=== PATIENT | female | born 1975 | race Caucasian/White ===

== ENCOUNTER 2017-05-15 08:45 | Day surgery (SDC) | payer OTHER ==
[~2017-05-15] VITALS: Ht 172.7 cm; Wt 79.4 kg
[~2017-05-15 08:45] MED LIST: AMBIEN5 MG PO; COUGH DROPS1 EAC1 MM; FLEXERIL10 MG PO; IBUPROFEN600 MG PO; METHOCARBAMOL750 MG PO; PERCOCET 5-3251 EACH PO; PRENATAL ONE T1 EACH PO; TRAZODONE HCL50 MG PO; VITAMIN C500 M1 PO
--- NOTE | 2017-05-15 11:24 | NUR ---
05/15/17 1124 Ahn Ma REPORT FROM INTERPRETER AND TRANSLATOR.
--- NOTE | 2017-05-17 10:27 | OR ---
[facility] [address], [place] [address] Signed DATE OF PROCEDURE: 05/15/17 PREOPERATIVE DIAGNOSES Generalized and periumbilical abdominal pain. Bloating. Constipation. POSTOPERATIVE DIAGNOSES Mild distal gastritis. Small type 1 hiatal hernia. Unremarkable colonoscopy. PROCEDURE EGD with CLOtest and biopsies of the duodenum, pyloric bulb, antrum, GE junction, and midesophagus. Colonoscopy with biopsies of the terminal ilium and random biopsies throughout the colon. ESTIMATED BLOOD LOSS: None. INDICATIONS Wily is a 41-year-old female, who came to us initially in 2008. She had very similar symptoms. She has generalized abdominal pain and periumbilical pain. She has a lot of bloating. Often she has to unbuckle her pants. She also has constipation and can go several days or even up to a week without going to the bathroom. This is normally proceeded by crampy pain in her abdomen. She never has pain around the anus. She said it was worse when she had her second child just 4 years ago. Her oldest child is now 11 years. She has also remarried and told me her is an excellent cook. He tends to put too much food on her plate and she says she has gained a little weight as well. She had a CT scan of the abdomen and pelvis back in 2008. There were no major findings. She had a pelvic ultra sound in January of 2016 and that was fine. No abdominal ultrasound recently. Because of her ongoing symptoms, she was asked to come see me and have repeat upper and lower endoscopy. I met with Wily in the office and I gave her a pamphlet on upper and lower endoscopy. We discussed the nature of the 2 tests along with the risks including, but not limited to gas bloating, crampy abdominal pain, bleeding, perforation requiring surgery, and missed diagnosis. We also discussed the need for IV conscious sedation. She had expressed understanding and wished to proceed. Because of her daily need for Ambien and Trazodone, we used an anesthesia provider to help give her Propofol previously and we did that again on this occasion. It worked out quite nicely. In fact, our anesthesia provider made a comment that she did use quite a bit of Propofol. Wily was taken into our endoscopy suite and placed in the supine semi-recumbent position. The posterior oropharynx was anesthetized with viscous Lidocaine. A bite block was utilized. She was then given IV sedation with Propofol per our nurse autocad draftsman. The adult Electronically Signed By: RADHA PEARSON MD 05/17/17 1027 PATIENT NAME: WILY WOMACK OPERATIVE REPORT DATE OF : 75 PHYSICIAN: RADHA PEARSON MD REPORT #: [id number] REPORT IS CONFIDENTIAL AND NOT TO BE RELEASED WITHOUT AUTHORIZATION [facility] [address], [place] [address] Signed gastroscope was introduced and advanced all out into the third portion of the duodenum under direct visualization of camera without difficulty. The duodenum and pyloric bulb were unremarkable. We took biopsies of the duodenum and pyloric bulb. In the stomach, we saw minimal punctate areas of inflammation in the distal half of the stomach. We went ahead and took biopsies of the antrum for CLOtest as well as pathologic review. The incisure of body and fundus of the stomach were unremarkable. Upon retroflexion of scope, she appears to have just a small type 1 hiatal hernia. There were no gastric or esophageal varices. No ulcerations. The scope was withdrawn up through the area of the GE junction, which was compliant without stricture. There was very minimal if any disruption to the Z-line. No Mckeon's mucosa, no distal esophagitis. We did see some felinization of the esophagus. It was quite mild. We went ahead and took biopsies in her mid-esophagus to rule out eosinophilic esophagitis. The upper esophagus was unremarkable. After this, the gastroscope was removed and Wily tolerated procedure quite well. Wily was rotated in the left lateral decubitus position. She was maintained on IV sedation with IV Propofol. A digital rectal exam was performed and this was unremarkable. The adult colonoscope was introduced and advanced all around into the cecum under direct visualization and it came without difficulty. Her prep was quite excellent. We passed the scope into the terminal ilium for about 10 cm and it appeared quite healthy. We went ahead and took 2 biopsies out of the terminal ileum. The scope was then brought back into the colon and we slowly withdrew the scope. We did not see any pathology in the colon or rectum, but we went ahead and took biopsies randomly in the colon for pathologic review. Upon retroflexion of the scope, there was no additional pathology noted above the anal canal. After this, the gas was suctioned out and the colonoscope removed. Wily tolerated the procedure quite well. RECOMMENDATIONS I will see Wily back in my office in 7-14 days to review her results. One has to keep in mind irritable bowel syndrome. MD DARRELL Liz/Neptali /[id number] Electronically Signed By: RADHA PEARSON MD 05/17/17 1027 PATIENT NAME: WILY WOMACK OPERATIVE REPORT DATE OF : 75 PHYSICIAN: RADHA PEARSON MD REPORT #: [id number] REPORT IS CONFIDENTIAL AND NOT TO BE RELEASED WITHOUT AUTHORIZATION [facility] [address] [place] [id number] Signed cc: DO Denise Blas MD Electronically Signed By: RADHA PEARSON MD 05/17/17 1027 PATIENT NAME: WILY WOMACK OPERATIVE REPORT DATE OF : 75 PHYSICIAN: RADHA PEARSON MD REPORT #: [id number] REPORT IS CONFIDENTIAL AND NOT TO BE RELEASED WITHOUT AUTHORIZATION
== END 2017-05-15 12:20 | disposition home or self-care (01) ==
LOC: DS 08:45 → OPS 08:45 → DS 09:00 → OPS 10:15
PROVIDERS: Colon & Rectal Surgery
PROC: 0DB98ZX Excision of Duodenum, Via Natural or Artificial Opening Endoscopic, Diagnostic (ICD-10-PCS; 2017-05-15)
PROC: 0DB28ZX Excision of Middle Esophagus, Via Natural or Artificial Opening Endoscopic, Diagnostic (ICD-10-PCS; 2017-05-15)
PROC: 0DB48ZX Excision of Esophagogastric Junction, Via Natural or Artificial Opening Endoscopic, Diagnostic (ICD-10-PCS; 2017-05-15)
PROC: 0DB78ZX Excision of Stomach, Pylorus, Via Natural or Artificial Opening Endoscopic, Diagnostic (ICD-10-PCS; 2017-05-15)
PROC: 0DB68ZX Excision of Stomach, Via Natural or Artificial Opening Endoscopic, Diagnostic (ICD-10-PCS; 2017-05-15)
PROC: 0DBB8ZX Excision of Ileum, Via Natural or Artificial Opening Endoscopic, Diagnostic (ICD-10-PCS; principal; 2017-05-15 10:15)
PROC: 0DBE8ZX Excision of Large Intestine, Via Natural or Artificial Opening Endoscopic, Diagnostic (ICD-10-PCS; 2017-05-15 10:15)
DX: K29.50 Unspecified chronic gastritis without bleeding (principal); K44.9 Diaphragmatic hernia without obstruction or gangrene; K21.0 Gastro-esophageal reflux disease with esophagitis; K59.00 Constipation, unspecified; R61 Generalized hyperhidrosis; G43.909 Migraine, unspecified, not intractable, without status migrainosus; G25.81 Restless legs syndrome; F32.9 Major depressive disorder, single episode, unspecified; F41.9 Anxiety disorder, unspecified; D64.9 Anemia, unspecified; Z96.642 Presence of left artificial hip joint; Z79.899 Other long term (current) drug therapy; Z98.890 Other specified postprocedural states
CPT/HCPCS: 00740; 86677; J2704; J7120